=== PATIENT | female | born 1990 | race Caucasian/White ===

== ENCOUNTER 2016-08-21 14:55 | Emergency (ER) | payer SELFPAY ==
[~2016-08-21] VITALS: Ht 172.7 cm; Wt 58.0 kg
[2016-08-21 15:05] VITALS: BP 107/65; PULSE 93; RESP 18; TEMP 98.9; O2SAT 100
[2016-08-21] MEDS ORDERED: SODIUM CHLOR 0.9% 1000 ML INJ 1,000 ML IV SCH (15:12)
[2016-08-21] MEDS ORDERED: SODIUM CHLORIDE 0.9% FLUSH 10 ML FLUSH IV FLUSH PRN (15:15)
[2016-08-21] MEDS ORDERED: ONDANSETRON HCL 4 MG/2 ML VIAL IVP ONE (15:15)
--- NOTE | 2016-08-21 15:17 | PD ---
HPI Chief Complaint: GI Complaint Time Seen by Provider: 15:15 Travel History International Travel<30 days: No Contact w/Intl Traveler<30days: No Traveled to known affect area: No History of Present Illness HPI 26-year-old female with history of no previous significant medical issues, presents to the ER today for 2 days history of nausea, vomiting, abdominal cramping pains which can get up to a 4-5 out of 10, lower back pains, and chills. She does not know any sick contacts. She denies any fevers, diarrhea, respiratory symptoms, vaginal discharge, urinary symptoms or any other issues. She states that she had taken a home test and it was negative. Modifying Factors: None Associated Signs & Symptoms: Nausea, vomiting, abdominal cramping pains, lower back pains, chills Risk Factors: None PFSH Past Medical History Respiratory: Yes (URI) ?: Unknown LMP: 3 DAYS LATE Social History Alcohol Use: No Tobacco Use: Yes (former smoker) Substance Use: No Allergies-Medications (Allergen,Severity, Reaction): Coded Allergies: No Known Allergies (Verified , 10/24/14) Reported Meds & Prescriptions Reported Meds & Active Scripts Active Review of Systems Except as stated in HPI: all other systems reviewed are Neg Physical Exam Narrative GENERAL: Well-developed young white female patient currently in mild distress. Awake and oriented 3. SKIN: Focused skin assessment warm/dry. HEAD: Atraumatic. Normocephalic. EYES: Pupils equal and round. No scleral icterus. No injection or drainage. ENT: No nasal bleeding or discharge. Mucous membranes pink and moist. NECK: Trachea midline. No JVD. CARDIOVASCULAR: Regular rate and rhythm. No murmur appreciated. RESPIRATORY: No accessory muscle use. Clear to auscultation. Breath sounds equal bilaterally. GASTROINTESTINAL: Abdomen soft, mild suprapubic tenderness without guarding or rebound, nondistended. Hepatic and splenic margins not palpable. MUSCULOSKELETAL: No obvious deformities. No clubbing. No cyanosis. No edema. NEUROLOGICAL: Awake and alert. No obvious cranial nerve deficits. Motor grossly within normal limits. Normal speech. PSYCHIATRIC: Appropriate mood and affect; insight and judgment normal. Data Data Last Documented VS Vital Signs Date Time Temp Pulse Resp B/P Pulse Ox O2 Delivery O2 Flow Rate FiO2 08/21/16 15:47 100 08/21/16 15:05 98.9 93 18 107/65 Orders Urinalysis - C+S If Indicated (08/21/16 15:10) Complete Blood Count With Diff (08/21/16 15:12) Comprehensive Metabolic Panel (08/21/16 15:12) Lipase (08/21/16 15:12) Iv Access Insert/Monitor (08/21/16 15:12) Ecg Monitoring (08/21/16 15:12) Oximetry (08/21/16 15:12) Ondansetron Inj (Zofran Inj) (08/21/16 15:15) Sodium Chlor 0.9% 1000 Ml Inj (Ns 1000 M (08/21/16 15:12) Sodium Chloride 0.9% Flush (Ns Flush) (08/21/16 15:15) Ed Urine Pregnancytest Poc (08/21/16 15:12) Labs Laboratory Tests Test 08/21/16 08/21/16 13:20 15:39 Urine Color YELLOW Urine Turbidity CLEAR Urine pH 6.0 Urine Specific [place] 1.018 Urine Protein NEG mg/dL Urine Glucose (UA) NEG mg/dL Urine Ketones NEG mg/dL Urine Occult Blood NEG Urine Nitrite NEG Urine Bilirubin NEG Urine Leukocyte Esterase TRACE Urine WBC 6-8 /hpf Urine Squamous Epithelial > 8 /hpf Cells Urine Bacteria FEW /hpf Urine Mucus MANY /lpf Microscopic Urinalysis Comment CULT NOT INDICATED White Blood Count 7.5 TH/MM3 Red Blood Count 3.85 MIL/MM3 Hemoglobin 11.8 GM/DL Hematocrit 34.4 % Mean Corpuscular Volume 89.5 FL Mean Corpuscular Hemoglobin 30.6 PG Mean Corpuscular Hemoglobin 34.2 % Concent Red Cell Distribution Width 13.6 % Platelet Count 261 TH/MM3 Mean Platelet Volume 8.0 FL Neutrophils (%) (Auto) 86.1 % Lymphocytes (%) (Auto) 7.4 % Monocytes (%) (Auto) 5.8 % Eosinophils (%) (Auto) 0.3 % Basophils (%) (Auto) 0.4 % Neutrophils # (Auto) 6.5 TH/MM3 Lymphocytes # (Auto) 0.6 TH/MM3 Monocytes # (Auto) 0.4 TH/MM3 Eosinophils # (Auto) 0.0 TH/MM3 Basophils # (Auto) 0.0 TH/MM3 CBC Comment DIFF FINAL Differential Comment Sodium Level 141 MEQ/L Potassium Level 3.5 MEQ/L Chloride Level 106 MEQ/L Carbon Dioxide Level 25.5 MEQ/L Anion Gap 10 MEQ/L Blood Urea Nitrogen 8 MG/DL Creatinine 0.71 MG/DL Estimat Glomerular Filtration 101 ML/MIN Rate Random Glucose 107 MG/DL Calcium Level 8.8 MG/DL Total Bilirubin 0.6 MG/DL Aspartate Amino Transf 11 U/L (AST/SGOT) Alanine Aminotransferase 19 U/L (ALT/SGPT) Alkaline Phosphatase 60 U/L Total Protein 7.5 GM/DL Albumin 3.5 GM/DL Lipase 118 U/L [facility] Medical Decision Making Medical Screen Exam Complete: Yes Emergency Medical Condition: Yes Medical Record Reviewed: Yes Interpretation(s) Laboratory Tests Test 08/21/16 08/21/16 13:20 15:39 Urine Leukocyte Esterase TRACE (NEG) Urine WBC 6-8 /hpf (0-5) Urine Squamous Epithelial > 8 /hpf (0-5) Cells Urine Bacteria FEW /hpf (NONE) Urine Mucus MANY /lpf (OCC) Red Blood Count 3.85 MIL/MM3 (4.00-5.30) Hematocrit 34.4 % (35.0-46.0) Neutrophils (%) (Auto) 86.1 % (16.0-70.0) Lymphocytes (%) (Auto) 7.4 % (9.0-44.0) Lymphocytes # (Auto) 0.6 TH/MM3 (1.0-4.8) Random Glucose 107 MG/DL (74-106) Aspartate Amino Transf 11 U/L (15-37) (AST/SGOT) Differential Diagnosis Nausea, vomiting, abdominal cramping pains, suprapubic pains, lower back pains, chillsUTI versus viral syndrome versus versus gastroenteritis versus dehydration versus metabolic issues Narrative Course Lab work shows UTI. Abdomen is fairly benign and I do not suspect an acute intra-abdominal process. At this point, my plan would be to release the patient with follow-up to primary care physician. Return for any worsening in symptoms as necessary. We will treat her UTI. Patient is not . The plan was discussed with the patient and she states understanding. Diagnosis Primary Impression: UTI (urinary tract infection) Med/Other Pt SpecificInfo: Prescription(s) given Scripts Nitrofurantoin Monohydrate Macrocrystals (Macrobid)100 Mg [id number] Mg PO BID 7 Days Ref 0 Prov:Georgia Vanegas MD 08/21/16 Ondansetron Odt (Zofran Odt)4 Mg Tab4 Mg SL Q6HR PRN (Nausea/Vomiting) #5 TAB Ref 0 Prov:Georgia Vanegas MD 08/21/16 Disposition: 01 DISCHARGE HOME Condition: Stable Georgia Vanegas MD Aug 21, 2016 15:17
[2016-08-21 15:35] LABS: BLOOD, URINE NEG (NEG); GLUCOSE,URINE NEG (NEG); KETONE, URINE NEG (NEG); NITRITE,URINE NEG (NEG)
[2016-08-21 15:42] LABS: URINE COLOR YELLOW (YELLW/STRAW)
[2016-08-21 15:43] LABS: MUCUS URINE MANY /lpf (OCC)
[2016-08-21 15:44] LABS: BACTERIA, URINE FEW /hpf; COMMENT (UR) CULT NOT INDICATED; CULTURE IF INDICATED CULT NOT INDICATED; SQUAMOUS EPITHELIAL CELL URINE > 8 /hpf (0-5)
[2016-08-21 15:47] VITALS: O2SAT 100
[2016-08-21 15:53] LABS: AUTOMATED NEUTROPHIL # 6.5 TH/MM3 (1.8-7.7); BASOPHIL % 0.4 % (0.0-2.0); EOSINOPHIL % 0.3 % (0.0-4.0); HEMATOCRIT 34.4 % (35.0-46.0); LYMPH % 7.4 % (9.0-44.0); LYMPHOCYTE # 0.6 TH/MM3 (1.0-4.8); MEAN CELL VOLUME 89.5 FL (80.0-100.0); MEAN CORPUSCULAR HEMOGLOBIN 30.6 PG (27.0-34.0); MEAN CORPUSCULAR HGB CONC 34.2 % (32.0-36.0); MONO % 5.8 % (0.0-8.0); NEUT % 86.1 % (16.0-70.0); PLATELET COUNT 261 TH/MM3 (150-450); RED BLOOD COUNT 3.85 MIL/MM3 (4.00-5.30); RED CELL DISTRIBUTION WIDTH 13.6 % (11.6-17.2); WHITE BLOOD COUNT 7.5 TH/MM3 (4.0-11.0)
[2016-08-21 16:03] LABS: HEMO FLAGS DIFF FINAL
[2016-08-21 16:04] LABS: CHLORIDE 106 MEQ/L (98-107); POTASSIUM 3.5 MEQ/L (3.5-5.1); SODIUM (NA) 141 MEQ/L (136-145)
[2016-08-21 16:07] LABS: ANION GAP 10 MEQ/L (5-15); BICARBONATE 25.5 MEQ/L (21.0-32.0)
[2016-08-21 16:08] LABS: BLOOD UREA NITROGEN 8 MG/DL (7-18)
[2016-08-21 16:10] LABS: ALT (GPT) 19 U/L (10-53); AST (GOT) 11 U/L (15-37); GLOMERULAR FILTRATION RATE 101 ML/MIN (>89)
[2016-08-21 16:12] LABS: TOTAL BILIRUBIN ADULT 0.6 MG/DL (0.2-1.0)
[2016-08-21 16:13] LABS: ALKALINE PHOSPHATASE 60 U/L (45-117)
[2016-08-21] MEDS ORDERED: MACR100C2 PO (16:20)
[2016-08-21] MEDS ORDERED: ZOFR4TAB3 SL (16:20)
[2016-08-21 16:38] VITALS: BP 116/70
== END 2016-08-21 16:41 | disposition home or self-care (01) ==
LOC: PHED 14:55
DX: N39.0 Urinary tract infection, site not specified (principal)
CPT/HCPCS: 80053; 81001; 83690; 84703; 85025; 96374; 99284; J2405; J7030

== ENCOUNTER 2016-11-20 01:04 | Emergency (ER) | payer SELFPAY ==
[~2016-11-20] VITALS: Ht 172.7 cm; Wt 58.0 kg
[~2016-11-20 01:04] MED LIST: MACR100C2 PO; ZOFR4TAB3 SL
[2016-11-20 01:12] VITALS: BP 105/61; PULSE 97; RESP 16; TEMP 98.3; O2SAT 100
[2016-11-20 01:25] VITALS: BP 103/61; PULSE 97; RESP 18; TEMP 98.3; O2SAT 100
[2016-11-20 01:30] VITALS: BP 115/69; PULSE 83; RESP 18; TEMP 98.2; O2SAT 100
--- NOTE | 2016-11-20 02:17 | PD ---
HPI Chief Complaint: Abdominal Pain Time Seen by Provider: 02:14 Travel History International Travel<30 days: No Contact w/Intl Traveler<30days: No Traveled to known affect area: No History of Present Illness HPI 26-year-old female presents to the emergency department by private transportation for complaint of pelvic pain after intercourse. Patient states that it is time for her. And because she was told by a colleague that intercourse would cause her to have her. She attempted to have intercourse this evening. Patient states at home her pain was 10 over 10 in intensity currently pain is 10 over 10 in intensity. Patient took no medications prior to coming to the emergency room. Patient denies any vaginal bleeding. No reported dysuria frequency urgency or hematuria. No report of flank pain. No history of reported endometriosis or ovarian cyst. Patient is 1 para 1 AB 0 previous and prior IUD but this has been removed. Patient does not use any contraceptives. No reported fever or chills. No report of chest pain. No reported nausea or vomiting. PFSH Past Medical History Narrative Medical Negative past medical history; ; tobacco use; nursing notes reviewed Medical History: Denies Significant Hx Diminished Hearing: No Respiratory: No Tetanus Vaccination: < 5 Years Influenza Vaccination: No ?: Unknown LMP: 10/20/16 Past Surgical History Section: Yes (07/22/14) Gynecologic Surgery: Yes ( 07/22/14) Social History Alcohol Use: Yes (SOCIALLY) Tobacco Use: Yes (3 CIG/DAY) Substance Use: No Allergies-Medications (Allergen,Severity, Reaction): Coded Allergies: No Known Allergies (Verified , 11/20/16) Reported Meds & Prescriptions Reported Meds & Active Scripts Active Anaprox DS (Naproxen Sodium) 550 Mg Tab 550 Mg PO Q12HR Review of Systems Except as stated in HPI: all other systems reviewed are Neg General / Constitutional: No: Fever, Chills HENT: No: Congestion Cardiovascular: No: Chest Pain or Discomfort Respiratory: No: Shortness of Breath Gastrointestinal: Positive: Abdominal Pain, No: Nausea, Vomiting Genitourinary: Positive: Pelvic Pain, No: Dysuria, Flank Pain, Discharge, Vaginal Bleeding Musculoskeletal: No: Myalgias, Arthralgias Skin: No Rash Neurologic: No: Weakness Psychiatric: No: Anxiety Hematologic/Lymphatic: No: Lymph Node Enlargement Physical Exam Narrative GENERAL: Well-developed well-nourished female in no acute distress no respiratory distress SKIN: Warm and dry. HEAD: Normocephalic. EYES: No scleral icterus. No injection or drainage. NECK: Supple, trachea midline. No JVD or lymphadenopathy. CARDIOVASCULAR: Regular rate and rhythm without murmurs, gallops, or rubs. RESPIRATORY: Breath sounds equal bilaterally. No accessory muscle use. GASTROINTESTINAL: Abdomen soft, suprapubic tenderness to palpation without guarding or rebound, nondistended. MUSCULOSKELETAL: No cyanosis, or edema. BACK: Nontender without obvious deformity. No CVA tenderness. Data Data Last Documented VS Vital Signs Date Time Temp Pulse Resp B/P Pulse Ox O2 Delivery O2 Flow Rate FiO2 11/20/16 05:01 98.2 78 18 115/78 100 11/20/16 02:54 Room Air Orders Complete Blood Count With Diff (11/20/16 02:14) Basic Metabolic Panel (Bmp) (11/20/16 02:14) Gc And Chlamydia Pcr (11/20/16 02:14) Wet Prep Profile (11/20/16 02:14) Urinalysis - C+S If Indicated (11/20/16 02:14) Ed Urine Pregnancytest Poc (11/20/16 02:14) Ketorolac Inj (Toradol Inj) (11/20/16 04:00) Sodium Chlor 0.9% 1000 Ml Inj (Ns 1000 M (11/20/16 04:00) Ct Abd/Pel W/O Iv Contrast (11/20/16 ) Labs Laboratory Tests Test 11/20/16 11/20/16 11/20/16 02:24 02:40 03:15 Urine Color [place] Urine Turbidity CLEAR Urine pH 5.5 Urine Specific [place] 1.030 Urine Protein NEG mg/dL Urine Glucose (UA) NEG mg/dL Urine Ketones NEG mg/dL Urine Occult Blood TRACE Urine Nitrite NEG Urine Bilirubin NEG Urine Leukocyte Esterase NEG Urine RBC 0-3 /hpf Urine WBC 0-2 /hpf Urine Squamous Epithelial 6-8 /hpf Cells Urine Bacteria NONE /hpf Microscopic Urinalysis Comment CULT NOT INDICATED White Blood Count 8.2 TH/MM3 Red Blood Count 4.11 MIL/MM3 Hemoglobin 12.5 GM/DL Hematocrit 37.0 % Mean Corpuscular Volume 90.1 FL Mean Corpuscular Hemoglobin 30.5 PG Mean Corpuscular Hemoglobin 33.9 % Concent Red Cell Distribution Width 12.8 % Platelet Count 217 TH/MM3 Mean Platelet Volume 9.1 FL Neutrophils (%) (Auto) 70.5 % Lymphocytes (%) (Auto) 20.3 % Monocytes (%) (Auto) 7.1 % Eosinophils (%) (Auto) 1.4 % Basophils (%) (Auto) 0.7 % Neutrophils # (Auto) 5.7 TH/MM3 Lymphocytes # (Auto) 1.7 TH/MM3 Monocytes # (Auto) 0.6 TH/MM3 Eosinophils # (Auto) 0.1 TH/MM3 Basophils # (Auto) 0.1 TH/MM3 CBC Comment DIFF FINAL Differential Comment Sodium Level 141 MEQ/L Potassium Level 3.5 MEQ/L Chloride Level 108 MEQ/L Carbon Dioxide Level 26.0 MEQ/L Anion Gap 7 MEQ/L Blood Urea Nitrogen 13 MG/DL Creatinine 0.65 MG/DL Estimat Glomerular Filtration 112 ML/MIN Rate Random Glucose 88 MG/DL Calcium Level 8.8 MG/DL Clue Cells (Wet Prep) NONE SEEN Vaginal Trichomonas (Wet Prep) NONE SEEN Vaginal Yeast (Wet Prep) NONE SEEN Chlamydia trachomatis DNA NOT DETECTED (PCR) Neisseria gonorrhoeae DNA NOT DETECTED (PCR) MDM Medical Decision Making Medical Screen Exam Complete: Yes Emergency Medical Condition: Yes Medical Record Reviewed: Yes Interpretation(s) Last Impressions Abdomen/Pelvis CT 11/20/16 0000 Signed Impressions: Service Date/Time: November 03:51 - CONCLUSION: Small amount of free fluid in the pelvis. No renal or ureteral calculi identified. No evidence of hydronephrosis. Feliciano Resendiz MD CBC & BMP Diagram 11/20/16 02:40 Vital Signs Date Time Temp Pulse Resp B/P Pulse Ox O2 Delivery O2 Flow Rate FiO2 11/20/16 02:54 72 18 98/60 100 Room Air 11/20/16 01:30 98.2 83 18 115/69 100 Room Air 11/20/16 01:25 98.3 97 18 103/61 100 11/20/16 01:12 98.3 97 16 105/61 100 Differential Diagnosis Pelvic pain, ruptured ovarian cyst, ectopic , UTI, ovarian torsion, dysmenorrhea Narrative Course IV access obtained specimens collected and sent for resulting Pelvic exam no cervical motion tenderness no uterine enlargement or adnexal mass or tenderness CT abdomen and pelvis reveals no acute abnormalities only a small amount of pelvic fluid otherwise unremarkable; patient at bedside with friends laughing and appears in no distress discomfort at this time is 0/10 in intensity; patient stable for outpatient management vital signs are normal range Diagnosis Primary Impression: Female pelvic pain Additional Impression: Dyspareunia in female Referrals: Tool Repairer call for appointment Patient Instructions: General Instructions Additional Instructions: Increase fluid hydration Follow-up with pastry decorator Return to the emergency department for any concerns or change in condition; such as pain bleeding or fever Increase fluid hydration Take Anaprox DS as prescribed as needed for pain associated with inflammation or for pelvic pain Med/Other Pt SpecificInfo: Prescription(s) given Scripts Naproxen Sodium DS (Anaprox DS)550 Mg [id number] Mg PO Q12HR #10 TAB Ref 0 Prov:Araceli Marshall MD 11/20/16 Disposition: 01 DISCHARGE HOME Condition: Stable Araceli Marshall MD Nov 20, 2016 02:17
[2016-11-20 02:53] LABS: BLOOD, URINE TRACE (NEG); GLUCOSE,URINE NEG (NEG); KETONE, URINE NEG (NEG); NITRITE,URINE NEG (NEG); PH, URINE 5.5 (5.0-8.5)
[2016-11-20 02:54] VITALS: BP 98/60; PULSE 72; RESP 18; O2SAT 100
[2016-11-20 02:54] LABS: WHITE BLOOD COUNT 8.2 TH/MM3 (4.0-11.0)
[2016-11-20 02:55] LABS: AUTOMATED NEUTROPHIL # 5.7 TH/MM3 (1.8-7.7); BASOPHIL # 0.1 TH/MM3 (0-0.2); BASOPHIL % 0.7 % (0.0-2.0); EOSINOPHIL # 0.1 TH/MM3 (0-0.4); EOSINOPHIL % 1.4 % (0.0-4.0); HEMO FLAGS DIFF FINAL; LYMPH % 20.3 % (9.0-44.0); LYMPHOCYTE # 1.7 TH/MM3 (1.0-4.8); MEAN CELL VOLUME 90.1 FL (80.0-100.0); MEAN CORPUSCULAR HEMOGLOBIN 30.5 PG (27.0-34.0); MEAN CORPUSCULAR HGB CONC 33.9 % (32.0-36.0); MONO % 7.1 % (0.0-8.0); NEUT % 70.5 % (16.0-70.0); PLATELET COUNT 217 TH/MM3 (150-450); RED BLOOD COUNT 4.11 MIL/MM3 (4.00-5.30); RED CELL DISTRIBUTION WIDTH 12.8 % (11.6-17.2)
[2016-11-20 03:02] LABS: POTASSIUM 3.5 MEQ/L (3.5-5.1)
[2016-11-20 03:07] LABS: URINE COLOR AMBER (YELLW/STRAW)
[2016-11-20 03:09] LABS: COMMENT (UR) CULT NOT INDICATED; CULTURE IF INDICATED CULT NOT INDICATED; RBC, URINE 0-3 /hpf (0-3); WBC, URINE 0-2 /hpf (0-5)
[2016-11-20] MEDS ORDERED: SODIUM CHLOR 0.9% 1000 ML INJ 1,000 ML IV ONE (04:00)
[2016-11-20] MEDS ORDERED: KETOROLAC TROMETHAMINE 30 MG/ML (IVP) VIAL IV PUSH ONE (04:00)
--- NOTE | 2016-11-20 04:23 | RADRPT ---
EXAM DATE/TIME: 11/20/2016 03:51 [facility] COMPARISON: No previous studies available for comparison. INDICATIONS : Right flank pain today. ORAL CONTRAST: No oral contrast ingested. RADIATION DOSE: 7.45 CTDIvol (mGy) MEDICAL HISTORY : None SURGICAL HISTORY : section. ENCOUNTER: Initial ACUITY: 1 day PAIN SCALE: 8/10 LOCATION: Right flank TECHNIQUE: Volumetric scanning of the abdomen and pelvis was performed. Using automated exposure control and ad justment of the mA and/or kV according to patient size, radiation dose was kept as low as reasonably achievable to obtain optimal diagnostic quality images. DICOM format image data is available electro nically for review and comparison. FINDINGS: LOWER LUNGS: The visualized lower lungs are clear. LIVER: Homogeneous density without lesion. There is no dilation of the biliary tree. No calcified gallston es. SPLEEN: Normal size without lesion. PANCREAS: Within normal limits. KIDNEYS: No renal or ureteral calculi. No hydronephrosis. ADRENAL GLANDS: Within normal limits. VASCULAR: There is no aortic aneurysm. BOWEL/MESENTERY: No evidence of bowel dilatation. No free air. Small amount of free fluid in the pelvis. Appendix with in normal limits. ABDOMINAL WALL: Within normal limits. RETROPERITONEUM: There is no lymphadenopathy. BLADDER: No wall thickening or mass. REPRODUCTIVE: Within normal limits. INGUINAL: There is no lymphadenopathy or hernia. MUSCULOSKELETAL: Within normal limits for patient age. CONCLUSION: Small amount of free fluid in the pelvis. No renal or ureteral calculi identified. No evidence of hyd ronephrosis. Feliciano Resendiz MD on November 20, 2016 at 4:15 Board Certified Radiologist. This report was verified electronically.
[2016-11-20] MEDS ORDERED: NAPR550 PO (04:37)
[2016-11-20 05:01] VITALS: BP 115/78; TEMP 98.2
[2016-11-20 06:40] LABS: CHLAMYDIA PCR NOT DETECTED (NOT DETECT); NEISSERIA PCR NOT DETECTED (NOT DETECT)
== END 2016-11-20 05:03 | disposition home or self-care (01) ==
LOC: PHED 01:04
DX: N94.10 Unspecified dyspareunia (principal)
CPT/HCPCS: 74176; 80048; 81001; 84703; 85025; 87210; 87491; 87591; 96360; 99284; J7030